=== PATIENT | male | born 1960 | race Caucasian/White ===

== ENCOUNTER 2019-07-09 | Observation (INO) | payer BC ==
[2019-07-09] VITALS (9 sets, daily range): BP systolic 107–141; BP diastolic 68–86
[~2019-07-09] MED LIST: NO HOME MEDS
--- NOTE | 2019-07-09 02:20 | NUR ---
TO ROOM FOR TRIAGE.
[2019-07-09] MEDS ORDERED: NORVASC10 M1 PO (02:55)
[2019-07-09] MEDS ORDERED: LOSARTAN POTAS100 MG PO (02:56)
[2019-07-09] MEDS ORDERED: XARELTO20 MG PO (02:56)
[2019-07-09] MEDS ORDERED: FLEXERIL PO (02:57)
--- NOTE | 2019-07-09 03:00 | NUR ---
RESTING QUIETLY LABS PENDING.
[2019-07-09 03:10] LABS: HEMATOCRIT 44.2 % (39.0-50.0); IMMATURE GRANULOCYTES 0.3 % (0.0-5.0); MEAN CELL VOLUME 89.7 fL CALC (80.0-100.0); MEAN CORPUSCULAR HGB 28.4 pG CALC (26.0-32.0); MEAN CORPUSCULAR HGB CONC 31.7 g/dL CAL (32.0-36.0); NEUT# 6.36 thou/uL (1.82-7.42); RED BLOOD COUNT 4.93 mill/uL (4.70-6.10); RED CELL DISTRI WIDTH 13.9 % (11.5-15.5)
[2019-07-09 03:37] LABS: ALBUMIN 4.2 g/dL (3.2-5.0); ALKALINE PHOSPHATASE 110 u/l (38-126); AMYLASE 100 u/l (30-110); ANION GAP 12 (6-22 (CALC)); BILIRUBIN, TOTAL 0.4 mg/dL (0.0-1.4); BUN 18 mg/dL (9-20); BUN/CREATININE RATIO 17 (12-20 (CALC)); CARBON DIOXIDE 26 mmol/l (22-30); CHLORIDE 104 mmol/l (95-108); CREATININE 1.1 mg/dL (0.7-1.3); GFR > 60 ML/MIN (>=60 (CALC)); GFR FOR AFR.AMER. > 60 ML/MIN (>=60 (CALC)); LIPASE 220 u/l (23-300); POTASSIUM 3.5 mmol/l (3.5-5.1); SGOT/AST 23 u/l (17-59); SODIUM 139 mmol/l (137-146); TOTAL PROTEIN 7.9 g/dL (6.3-8.2)
[2019-07-09 03:47] LABS: MYOGLOBIN 65 ng/mL (0 - 121)
--- NOTE | 2019-07-09 04:00 | NUR ---
NO CHANGE IN PAIN. MD ADVISED.
--- NOTE | 2019-07-09 05:00 | NUR ---
NO SIGNIFICANT CHANGE NOTED. NAD. AWAITING TEST RESULTS.
--- NOTE | 2019-07-09 06:00 | NUR ---
DISCUSSED CURRENT FINDINGS AND PLAN FOR U/S. PT REQUESTS PAIN MED.
--- NOTE | 2019-07-09 06:50 | NUR ---
report from rodrick ness; pt resting on stretcher, spouse at bedside; pt states pain is 7 out of 10 but easing up at this time; monitoring devices in place; vss; will continue to monitor
--- NOTE | 2019-07-09 07:56 | NUR ---
PT RETURNED FROM XRAY AT THIS TIME; MONITORING DEVICES REAPPLIED; VSS; PT ADVISED OF CONTINUED WAIT TIME FOR RESULTS; SPOUSE AT BEDSIDE; WILL CONTINUE TO MONITOR
--- NOTE | 2019-07-09 08:38 | NUR ---
DR MAGAÑA AT BEDSIDE TO DISCUSS POC AND FINDINGS
[2019-07-09 09:20] LABS: URINE BILIRUBIN - DIPSTICK NEGATIVE (NEGATIVE); URINE BLOOD DIPSTICK NEGATIVE (NEGATIVE); URINE COLOR YELLOW; URINE GLUCOSE - DIPSTICK NEGATIVE (NEGATIVE); URINE KETONE NEGATIVE (NEGATIVE); URINE LEUK ESTERASE NEGATIVE (NEGATIVE); URINE NITRITE - DIPSTICK NEGATIVE (Negative); URINE PH 5.5 (4.5-8.0); URINE PROTEIN - DIPSTICK NEGATIVE (NEG-TRACE); URINE SPECIFIC GRAVITY 1.025
[2019-07-09 09:28] LABS: ACT PARTIAL THROMBO TIME 28.8 SECONDS (20.0-32.5)
[2019-07-09 09:36] LABS: INTERNATIONAL NORMALIZED RATIO 1.1 RATIO (0.7-1.3)
--- NOTE | 2019-07-09 09:36 | NUR ---
PT TO OR AT THIS TIME; REPORT GIVEN TO RADHA RUIZ; PT IN STABLE CONDITION AT THIS TIME
--- NOTE | 2019-07-09 13:00 | NUR ---
PT ARRIVES TO ROOM 262 FROM PACU, DROWSY BUT EASILY ROUSED, ALERT AND ORIENTED X 3. ABDOMINAL SURGICAL SITE APPEARS WNL PER NO DRAINAGE, PATENT ORALIA DRAIN, NO SWELLING NOTED. PT DENIES PAIN, EASILY RETURNS TO LIGHT SLEEP BETWEEN QUESTIONS. PT ORIENTED TO CALL SEE AND BED CONTROLS, URINAL AT BEDSIDE. SCDs IN PLACE, GARDENING SUPERVISOR IN PLACE.
--- NOTE | 2019-07-09 14:58 | NUR ---
PT STATES THAT HE HAS BEEN ABLE TO GET UP TO VOID WITHOUT SIGNIFICANT PAIN. ABX HUNG ORDERED. PT REMAINS BEFORE, NO DISTRESS, NO DISCOMFORT.
[2019-07-09 17:59] LABS: HEMATOCRIT 41.9 % (39.0-50.0); HEMOGLOBIN 13.5 g/dl (14.0-18.0)
--- NOTE | 2019-07-09 19:00 | NUR ---
REPORT RECEIVED FROM RADHA BARKSDALE. PT RESTING IN BED, NO S/S OF DISTRESS AT THIS TIME. SAFETY PRECAUTIONS IN PLACE. WILL CONTINUE TO MONITOR.
--- NOTE | 2019-07-09 21:10 | NUR ---
PT RESTING IN BED ALERT AND ORIENTED. RESPIRATIONS EVEN AND UNLABORED ON O2 @ 2L VIA NC. LUNGS SOUND CLEAR. PEDAL PULSES ARE STRONG. PT DENIES ANY PAIN OR NAUSEA AT THIS TIME. 50 CC EMPTIED FROM DRAIN. SAFETY PRECAUTIONS IN PLACE. WILL CONTINUE TO MONITOR.
[2019-07-10 00:33] LABS: HEMATOCRIT 40.6 % (39.0-50.0)
--- NOTE | 2019-07-10 00:42 | NUR ---
PT RESTING IN BED, ALERT AND ORIETNED. PT STATES "I DON'T FEEL LIKE I'VE HAD MUCH OUT PUT WHEN I PEE SINCE I'VE BEEN HERE, I DO HAVE AN ENLARGE PROSTATE BUT DON'T USUALY HAVE RETENTION." BLADDER SCANNED 159ML IN BLADDER. WILL CONTINUE TO MONITOR.
[2019-07-10 00:51] VITALS: BP 135/86
--- NOTE | 2019-07-10 04:07 | NUR ---
PT RESTING IN BED, NO S/S OF DISTRESS AT THIS TIME. SAFETY PRECAUTIONS IN PLACE. WILL CONTINUE TO MONITOR.
[2019-07-10 04:34] VITALS: BP 132/89
[2019-07-10 06:20] LABS: HEMATOCRIT 39.5 % (39.0-50.0); HEMOGLOBIN 12.6 g/dl (14.0-18.0); IMMATURE GRANULOCYTES 0.2 % (0.0-5.0); MEAN CELL VOLUME 90.4 fL CALC (80.0-100.0); MEAN CORPUSCULAR HGB 28.8 pG CALC (26.0-32.0); MEAN CORPUSCULAR HGB CONC 31.9 g/dL CAL (32.0-36.0); NEUT# 10.68 thou/uL (1.82-7.42); RED BLOOD COUNT 4.37 mill/uL (4.70-6.10)
[2019-07-10 06:30] LABS: ALBUMIN 3.4 g/dL (3.2-5.0); ALKALINE PHOSPHATASE 83 u/l (38-126); BUN 17 mg/dL (9-20); BUN/CREATININE RATIO 18 (12-20 (CALC)); CARBON DIOXIDE 22 mmol/l (22-30); CHLORIDE 107 mmol/l (95-108); CREATININE 0.9 mg/dL (0.7-1.3); GFR > 60 ML/MIN (>=60 (CALC)); GFR FOR AFR.AMER. > 60 ML/MIN (>=60 (CALC)); SODIUM 136 mmol/l (137-146); TOTAL PROTEIN 6.7 g/dL (6.3-8.2)
[2019-07-10 06:31] LABS: ANION GAP 12 (6-22 (CALC)); BILIRUBIN, TOTAL 1.1 mg/dL (0.0-1.4); POTASSIUM 4.5 mmol/l (3.5-5.1); SGOT/AST 93 u/l (17-59)
[2019-07-10 07:36] VITALS: BP 126/71
--- NOTE | 2019-07-10 09:30 | NUR ---
PT AWAKE, ALERT, ORIENTED X 3, AMBULATORY IN ROOM WITHOUT ANY PROBLEM. PT HAS EATEN BREAKFAST, TOLERATED WITHOUT N/V/D. NO REPORT OF PAIN. ORALIA CONTINUES TO DRAIN MODERATE AMOUNT OF BLOOD.
[2019-07-10 11:03] VITALS: BP 120/69
[2019-07-10 11:57] LABS: HEMATOCRIT 40.9 % (39.0-50.0); HEMOGLOBIN 13.1 g/dl (14.0-18.0)
--- NOTE | 2019-07-10 13:32 | NUR ---
PT HAS BEEN SEEN BY DR CASON THIS MORNING AND HAS BEEN DISCHARGED TO HOME. PT VERBALIZED UNDERSTANDING OF DC INSTRUCTIONS, CHOSE TO AMBULATE TO LOBBY, SEEN TO HAVE STEADY GAIT. PT DENIES PAIN. PT PROVIDED HANDWRITTEN RX FOR PAIN MED, COPY IN CHART. PT LEAVES [facility] IN STABLE CONDITION.
== END 2019-07-10 13:30 | disposition home or self-care (01) | DRG 418 ==
PROVIDERS: Family Medicine; Nurse Practitioner Family; ADMIT Surgery
PROC: 0FT44ZZ Resection of Gallbladder, Percutaneous Endoscopic Approach (ICD-10-PCS; principal; 2019-07-09)
PROC: 3E0234Z Introduction of Serum, Toxoid and Vaccine into Muscle, Percutaneous Approach (ICD-10-PCS; 2019-07-10)
DX: K80.00 Calculus of gallbladder with acute cholecystitis without obstruction (principal); Z68.41 Body mass index [BMI] 40.0-44.9, adult; I48.20 Chronic atrial fibrillation, unspecified; I10 Essential (primary) hypertension; E66.01 Morbid (severe) obesity due to excess calories; Z79.01 Long term (current) use of anticoagulants; Z98.84 Bariatric surgery status; Z87.891 Personal history of nicotine dependence; Z23 Encounter for immunization; Z11.59 Encounter for screening for other viral diseases
CPT/HCPCS: J0131; J1100; J2710; Q9967